=== PATIENT | female | born 1950 ===

== ENCOUNTER 2021-04-04 16:34 | Outpatient (CLI) | payer MEDICARE ==
--- NOTE | 2021-04-05 09:00 | XRAY Report ---
PROCEDURE: Finger(s) RT INDICATIONS: R 4TH MCP JOINT PX FOLLOWING FOOSH INJURY TECHNIQUE: AP hand, 2 views of the right finger(s) acquired. COMPARISON: None. FINDINGS: No acute fracture identified. There is anatomic alignment. Scattered subchondral sclerosis and spurri ng. Severe first CMC joint degeneration. IMPRESSION: No acute abnormality. If the patient's pain or other symptoms persist, consider further evaluation [facility] MRI. Reviewed by: Juan Ko MD on 04/05/2021 8:58 AM PDT Approved by: Juan Ko MD on 04/05/2021 8:58 AM PDT Station ID: [id number]
--- NOTE | 2021-04-05 09:01 | XRAY Report ---
PROCEDURE: Wrist 3 View RT INDICATIONS: R WRIST FOOSH INJURY TECHNIQUE: 3 views of the wrist were acquired. COMPARISON: None. FINDINGS: No acute fracture identified. Severe first CMC joint degeneration. Scattered subchondral sclerosis an d spurring. Chronic lucency involving the third metacarpal head possibly cyst versus erosion, nonspec ific. Soft tissues: No suspicious soft tissue calcifications. IMPRESSION: Degenerative changes as above. No definite fracture however follow-up radiographs in 10 days could be performed if the patient's symptoms do not improve to exclude occult fracture/assess for healing scl erosis. Reviewed by: Juan Ko MD on 04/05/2021 8:59 AM PDT Approved by: Juan Ko MD on 04/05/2021 8:59 AM PDT Station ID: [id number]
== END 2021-04-04 23:59 | disposition home or self-care (01) ==
LOC: DI.N 16:34
PROVIDERS: ATTEND Physician Assistant Medical
DX: M19.031 Primary osteoarthritis, right wrist (principal); M18.11 Unilateral primary osteoarthritis of first carpometacarpal joint, right hand